=== PATIENT | female | born 1935 | race Caucasian/White ===

== ENCOUNTER 2017-11-08 08:17 | Day surgery (SDC) | payer MEDICARE, BC ==
[2017-11-08] MEDS ORDERED: DIPHENHYDRAMINE HCL 50 MG/ML VIAL ONE (09:17)
[2017-11-08] MEDS ORDERED: ONDANSETRON HCL INJ/PF 4 MG/2 ML SDV ONE (09:17)
[2017-11-08] MEDS ORDERED: NALOXONE HCL INJ/PF 0.4 MG/1 ML SDV ONE (09:17)
[2017-11-08] MEDS ORDERED: EPINEPHRINE INJ 1 MG/10 ML DISP.SYRIN ONE (09:18)
[2017-11-08] MEDS ORDERED: GLUCAGON,HUMAN RECOMB 1 MG INJ ONE (09:18)
[2017-11-08] MEDS ORDERED: MIDAZOLAM 2 MG/2 ML INJ ONE (09:18)
[2017-11-08] MEDS ORDERED: FLUMAZENIL INJ 0.5 MG/5 ML VIAL ONE (09:18)
[2017-11-08] MEDS: MIDAZOLAM 2 MG/2 ML INJ ONE ×4 (09:45→10:03)
[2017-11-08] MEDS: FENTANYL CITRATE INJ/PF 100 MCG/2 ML AMPUL ONE ×2 (09:47→09:55)
--- NOTE | 2017-11-08 10:24 | Discharge Summary ---
Discharge Summary (SDC) - Discharge Final Diagnosis: Sigmoid diverticulosis; internal hemorrhoid Date of Surgery: 11/08/17 Discharge Date: 11/08/17 Condition: Good Treatment or Instructions: [facility] [place] [id number] POST ENDOSCOPY DISCHARGE INSTRUCTIONS 1. Diet: Start clear liquids that a regular diet as tolerated. 2. Resume all preoperative medications. All oral anticoagulants and aspirins can be resumed 24 hours after procedure. 3. If a polypectomy was performed some bleeding per rectum may occur. This should stop within 3 days. If not, please contact the office. 4. If you had a colonoscopy you may experience some bloating and delayed return of normal bowel function for several days, your regular bowel movement pattern should resume within a week. 5. Please contact [facility] at to make an appointment with Dr. Torres for 1 to 3 weeks following procedure. 6. If you have any questions or concerns regarding your care,treatment plan or follow up, please contact our office. Patient will likely not require a repeat colonoscopy based on age. Referrals: DANISHA WALKER MD [Primary Care Provider] - Discharge Diet: As Tolerated Discharge Activity: Activity As Tolerated Home Care Assistance: None Needed Report the Following to Your Physician Immediately: Shortness of Breath, Increase in Pain, Fever over 101 Degrees
--- NOTE | 2017-11-08 10:26 | Operative Report ---
Operative Report DATE OF SURGERY: 11/08/17 PREOPERATIVE DIAGNOSIS: Remote history of colon polyps POSTOPERATIVE DIAGNOSIS: No colon polyp; sigmoid diverticulosis; internal hemorrhoids OPERATION: Total colonoscopy to cecum with photodocumentation SURGEON: ERNST LYNN ANESTHESIA: Moderate Sedation TISSUE REMOVED OR ALTERED: None COMPLICATIONS: See below ESTIMATED BLOOD LOSS: None INTRAOPERATIVE FINDINGS: See below PROCEDURE: Obtaining informed consent the patient was taken from the preoperative holding area to the main endoscopy suite where monitoring devices were attached to the patient. Plan and surgical timeout were conducted The patient was placed in the left lateral decubitus position with knees to chest. A perianal examination was performed. There was no visible or palpable anorectal pathology. Sphincter tone was felt to be normal. The flexible adult colonoscope was advanced through the anal rectal canal, all the way to the cecum. Complete visualization of the cecum was achieved and the ileocecal valve, the appendiceal orifice and transillumination of the anterior abdominal wall. Transverse colon previous polypectomy with tattooing. This was an excellent study on the well-prepped bowel. The colonoscope was withdrawn slowly and methodically checked and the mucosa carefully. There was no evidence of tumor, stricture, bleeding or polyp. There were 3-5 diverticulosis of the sigmoid colon The scope was slowly withdrawn through the anal rectal canal. Retroflexion revealed internal hemorrhoids, small, mildly edematous complete visualization of the rectum was achieved with photodocumentation. The scope was withdrawn to the patient's anus. The patient tolerated the procedure well and was taken to the recovery area in stable condition. Per surveillance guidelines, based on age, patient will likely not require follow-up colonoscopy
[2017-11-08 11:32] VITALS: BP 126/57
== END 2017-11-08 11:10 | disposition home or self-care (01) ==
LOC: END 08:17
PROVIDERS: ATTEND Surgery
DX: Z12.11 Encounter for screening for malignant neoplasm of colon (principal); K57.30 Diverticulosis of large intestine without perforation or abscess without bleeding; K64.8 Other hemorrhoids; Z86.010 Personal history of colon polyps; K29.50 Unspecified chronic gastritis without bleeding; K63.89 Other specified diseases of intestine; E03.9 Hypothyroidism, unspecified; M19.90 Unspecified osteoarthritis, unspecified site; E11.9 Type 2 diabetes mellitus without complications; Z79.82 Long term (current) use of aspirin; Z79.899 Other long term (current) drug therapy
CPT/HCPCS: G0121; J2250; J3010; 45378; J0171; J1200; J1610; J2310; J2405; J3490

== ENCOUNTER → 2019-07-01 | Outpatient (CLI) | payer MEDICARE, BC ==
--- NOTE | 2019-07-01 13:41 | RADIOLOGY REPORT (SQ) ---
EXAM DESCRIPTION: CT SOFT TISSUE NECK WITH COMPLETED DATE/TIME: 07/01/2019 1:23 pm REASON FOR STUDY: PAROTID MASS (K11.8) K11.8 OTHER DISEASES OF SALIVARY GLANDS COMPARISON: None. TECHNIQUE: Post IV contrasted scanning from skull base through lung apices with review of bone, soft tissue and lung windows. Reconstructed coronal and sagittal MPR images reviewed. All images stored on PACS. All CT scanners at this facility use dose modulation, iterative reconstruction, and/or weight based d osing when appropriate to reduce radiation dose to as low as reasonably achievable (ALARA). [facility]: Dose Right [facility]: CareDose [facility]: Dose Right [facility]: Teradose 4D [facility]: ITM Software CONTRAST TYPE AND DOSE: contrast/concentration: Isovue 350.00 mg/ml; Total Contrast Delivered: 75.0 ml; Total Saline Delivered: 55.0 ml RENAL FUNCTION: Creatinine 0.8. RADIATION DOSE: . LIMITATIONS: None. FINDINGS: SKULL BASE: Intact. MAJOR SALIVARY GLANDS: 7 mm peripheral homogeneous enhancing mass in the left parotid gland. No infl ammatory changes. LYMPHADENOPATHY: No adenopathy. MUCOSAL MASSES OR ASYMMETRY: No mucosal masses or asymmetry. LARYNX/CORDS: No abnormal findings. VASCULAR STRUCTURES: The major vessels are patent. LUNG APICES: Clear. BONES: Intact. Degenerative changes in the spine THYROID: Atrophic. No masses. PARANASAL SINUSES: Clear. OTHER: No other significant finding. 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 NO ADENOPATHY. N O OTHER SIGNIFICANT FINDING IN THE SOFT TISSUES OF THE NECK. TECHNICAL DOCUMENTATION: JOB ID: [id number] Quality ID # [id number]: Final reports with documentation of one or more dose reduction techniques (e.g., Au tomated exposure control, adjustment of the mA and/or kV according to patient size, use of iterative reconstruction technique) 2010 [employer]- All Rights Reserved Reading location - IP/workstation name: [email or web address]
== END ==
LOC: RAD 12:22
PROVIDERS: ATTEND Otolaryngology
DX: K11.8 Other diseases of salivary glands (principal)
CPT/HCPCS: 70491; 82565

== ENCOUNTER → 2019-07-22 | Day surgery (SDC) | payer MEDICARE, BC ==
--- NOTE | 2019-07-22 13:58 | RADIOLOGY REPORT (SQ) ---
EXAM DESCRIPTION: U/S BX SOFT TISS NECK THORX COMPLETED DATE/TIME: 07/22/2019 11:57 am REASON FOR STUDY: PAROTID MASS (K11.8) K11.8 OTHER DISEASES OF SALIVARY GLANDS COMPARISON: None. TECHNIQUE: The procedure was discussed with the patient and written informed consent obtained. A ti meout was performed to confirm the procedure and patient's identity. The skin of the face was preppe d and draped in sterile fashion and 10 mL lidocaine administered for local anesthesia. Under sonogra [facility] guidance, fine needle aspiration biopsy was performed of the mass in the left parotid gland. Four separate aspirations were performed. The signing teacher was present and processed the tissue at the time of the procedure. Hemostasis was obtained with direct manual compression. There were no immediate complications. LIMITATIONS: None. FINDINGS: PATHOLOGY: Pending. IMPRESSION: ULTRASOUND-GUIDED BIOPSY PERFORMED OF A MASS IN THE LEFT PAROTID GLAND. PATHOLOGY PENDI NG AT THE TIME OF DICTATION. COMMENT: Patient medication list reviewed: Yes- Quality ID# [id number]:Eligible professional attests to doc umenting in the medical record they obtained, updated, or reviewed the patient's current medications. TECHNICAL DOCUMENTATION: JOB ID: [id number] 2010 [employer]- All Rights Reserved Reading location - IP/workstation name: [email or web address]
== END ==
LOC: RAD 10:10
PROVIDERS: ATTEND Otolaryngology
DX: K11.8 Other diseases of salivary glands (principal)
CPT/HCPCS: 21550; 88173